=== PATIENT | female | born 1965 | race Caucasian/White ===

== ENCOUNTER → 2021-12-14 | Outpatient (CLI) | payer OTHER | END | disposition home or self-care (01) | LOC: RAD 14:44 | PROVIDERS: ATTEND Family Medicine | DX: J92.9 Pleural plaque without asbestos (principal) ==

== ENCOUNTER 2024-06-16 10:05 | Emergency (ER) | payer OTHER ==
[~2024-06-16] VITALS: Ht 170.1 cm; Wt 59.0 kg
[2024-06-16] MEDS ORDERED: IOHEXOL 300 MG/ML 100 ML VIAL IV ONE (10:25)
[2024-06-16 10:46] LABS: BASO # 0.1 10*3/uL (0.0-0.1); BASO % 0.7 % (0.0-1.0); EOS # 0.3 10*3/uL (0.0-0.4); EOS % 2.9 % (1.0-4.0); HEMATOCRIT 37.9 % (37.0-47.0); LYMPH # 1.5 10*3/uL (1.3-4.4); MEAN CELL VOLUME 87.5 fl (81.0-99.0); MEAN CORPUSCULAR HGB 29.3 pg (27.0-31.0); MEAN CORPUSCULAR HGB CONC 33.5 g/dl (33.0-37.0); MEAN PLATELET VOLUME 9.3 fl (9.6-12.3); MONO # 0.8 10*3/uL (0.1-1.0); MONO % 9.6 % (3.0-9.0); NEUT # 5.9 10*3/uL (2.3-7.9); NEUT % 69.6 % (47.0-73.0); PLATELET COUNT AUTOMATED 281 10*3/uL (130-400); RED BLOOD COUNT 4.33 10*6/uL (4.10-5.10); RED CELL DISTRI WIDTH 12.5 % (0-14.5); WHITE BLOOD COUNT 8.5 10*3/uL (4.8-10.8)
[2024-06-16 11:09] LABS: ALKALINE PHOSPHATASE 97 U/L (46-116); BUN 9 mg/dl (9-23); CHLORIDE 102 mmol/L (98-107); LIPASE 34 U/L (12-53); POTASSIUM 4.1 mmol/L (3.4-5.1); SGPT/ALT 26 U/L (5-49); TOTAL PROTEIN 7.5 gm/dL (6.0-8.0)
[2024-06-16 12:06] LABS: BILIRUBIN Negative (Negative); BLOOD Negative (Negative); CLARITY Clear (Clear); COLOR Yellow (Yellow); GLUCOSE Negative (Negative); KETONE Negative (Negative); LEUKO ESTERASE 3+ (Negative); NITRITE Negative (Negative); UROBILINOGEN 0.2 E.U./dl (0.0-1.0)
[2024-06-16 12:16] LABS: BACTERIA 1+; EPITHELIAL CELLS 16-20; WBC TNTC wbc/hpf (0-5)
[2024-06-16] MEDS ORDERED: IBUPROFEN400 MG PO (13:46)
[2024-06-16] MEDS ORDERED: MIRALAX POWDER17 G1 PO (13:46)
[2024-06-16] MEDS ORDERED: TYLENOL EXTRA500 MG PO (13:46)
[2024-06-16] MEDS ORDERED: MORPHINE SULFAT15 MG PO (13:46)
[2024-06-16] MEDS ORDERED: Ondansetron4 MG PO (13:46)
[2024-06-16] MEDS ORDERED: AMOX-CLAV 875-1 EACH PO (13:46)
== END 2024-06-16 14:12 | disposition home or self-care (01) ==
LOC: ED 10:05
PROVIDERS: Emergency Medicine
DX: K57.32 Diverticulitis of large intestine without perforation or abscess without bleeding (principal)

== ENCOUNTER 2024-07-29 13:24 | Emergency (ER) | payer OTHER ==
[~2024-07-29] VITALS: Ht 172.7 cm; Wt 59.0 kg
[~2024-07-29 13:24] MED LIST: AMOX-CLAV 875-1 EACH PO; IBUPROFEN400 MG PO; MIRALAX POWDER17 G1 PO; MORPHINE SULFAT15 MG PO; Ondansetron4 MG PO; TYLENOL EXTRA500 MG PO
[2024-07-29 13:54] VITALS: BP 124/71
[2024-07-29] MEDS ORDERED: TRAZODONE100 MG PO (13:55)
[2024-07-29] MEDS ORDERED: MONTELUKAST SOD10 MG PO (13:55)
[2024-07-29] MEDS ORDERED: ESTRADIOL10 MCG V (13:56)
[2024-07-29] MEDS ORDERED: SODIUM CHLORIDE 0.9% 1,000 ML IV ONE (14:05)
[2024-07-29 14:40] LABS: HEMATOCRIT 39.4 % (37.0-47.0); LYMPH # 0.7 10*3/uL (1.3-4.4); LYMPH % 17.9 % (27.0-41.0); MEAN CELL VOLUME 89.5 fl (81.0-99.0); MEAN CORPUSCULAR HGB 28.9 pg (27.0-31.0); MEAN CORPUSCULAR HGB CONC 32.2 g/dl (33.0-37.0); MEAN PLATELET VOLUME 9.5 fl (9.6-12.3); MONO # 0.3 10*3/uL (0.1-1.0); MONO % 6.9 % (3.0-9.0); NEUT # 3.1 10*3/uL (2.3-7.9); NEUT % 75.2 % (47.0-73.0); PLATELET COUNT AUTOMATED 274 10*3/uL (130-400); RED CELL DISTRI WIDTH 12.7 % (0-14.5); WHITE BLOOD COUNT 4.1 10*3/uL (4.8-10.8)
[2024-07-29 14:54] LABS: BUN 11 mg/dl (9-23); CHLORIDE 100 mmol/L (98-107)
== END 2024-07-29 16:00 | disposition home or self-care (01) ==
LOC: ED 13:24 → EDHOLD 15:51 → ED 15:51
PROVIDERS: Internal Medicine
DX: U07.1 COVID-19 (principal); R53.1 Weakness

== ENCOUNTER 2024-07-30 08:15 | Inpatient (IN) | payer OTHER ==
[~2024-07-30] VITALS: Ht 170.2 cm; Wt 64.9 kg
[~2024-07-30 08:15] MED LIST changes: +ESTRADIOL10 MCG V; +MONTELUKAST SOD10 MG PO; +TRAZODONE100 MG PO
[2024-07-30 08:23] VITALS: BP 139/76
[2024-07-30] MEDS ORDERED: Lactated Ringer's Solution 1,000 ML IV SCH (08:45)
[2024-07-30] MEDS ORDERED: diphenhydrAMINE hydrochloride 50 MG/ML VIAL IV ONE (08:55)
[2024-07-30] MEDS ORDERED: Metoclopramide Hydrochloride 10 MG/2 ML VIAL IV ONE (08:55)
[2024-07-30] MEDS ORDERED: Dexamethasone Sodium Phospha 10 MG/1 ML VIAL IV ONE (08:55)
[2024-07-30] MEDS ORDERED: Prochlorperazine Edisylate 10 MG/2 ML VIAL IV ONE (08:55)
[2024-07-30 09:06] LABS: BASO % 0.2 % (0.0-1.0); EOS % 0.2 % (1.0-4.0); HEMATOCRIT 36.5 % (37.0-47.0); LYMPH # 1.1 10*3/uL (1.3-4.4); LYMPH % 24.6 % (27.0-41.0); MEAN CELL VOLUME 87.5 fl (81.0-99.0); MEAN CORPUSCULAR HGB 28.5 pg (27.0-31.0); MEAN CORPUSCULAR HGB CONC 32.6 g/dl (33.0-37.0); MEAN PLATELET VOLUME 9.5 fl (9.6-12.3); MONO # 0.4 10*3/uL (0.1-1.0); MONO % 9.1 % (3.0-9.0); NEUT # 2.8 10*3/uL (2.3-7.9); NEUT % 65.7 % (47.0-73.0); PLATELET COUNT AUTOMATED 254 10*3/uL (130-400); RED BLOOD COUNT 4.17 10*6/uL (4.10-5.10); RED CELL DISTRI WIDTH 12.6 % (0-14.5); WHITE BLOOD COUNT 4.3 10*3/uL (4.8-10.8)
[2024-07-30 09:24] LABS: ALKALINE PHOSPHATASE 84 U/L (46-116); BUN 10 mg/dl (9-23); CHLORIDE 103 mmol/L (98-107); POTASSIUM 3.8 mmol/L (3.4-5.1); SGPT/ALT 24 U/L (5-49); TOTAL PROTEIN 6.9 gm/dL (6.0-8.0)
[2024-07-30] MEDS ORDERED: BISACODYL 5 MG TAB PO PRN (10:55)
[2024-07-30] MEDS ORDERED: BISACODYL 10 MG SUPP R PRN (10:55)
[2024-07-30] MEDS ORDERED: TEMAZEPAM 15 MG CAP PO PRN (10:55)
[2024-07-30] MEDS ORDERED: Acetaminophen/Hydrocodone 5 MG/325 MG TABLET PO PRN (10:55)
[2024-07-30] MEDS ORDERED: Magnesium Hydroxide 30 ML UDC PO PRN (10:55)
[2024-07-30] MEDS ORDERED: SODIUM CHLORIDE 0.9% 1,000 ML IV SCH (10:55)
[2024-07-30] MEDS ORDERED: MORPHINE Sulfate 2 MG/ML SYR IV PRN (10:55)
[2024-07-30] MEDS ORDERED: Dexamethasone Sodium Phospha 4 MG/ML VIAL IV SCH (11:00)
[2024-07-30] MEDS ORDERED: REMDESIVIR 200 MG in SODIUM CHLORIDE 0.9% 210 ML IV ONE (12:00)
[2024-07-30] MEDS ORDERED: Ondansetron Hydrochloride 4 MG/2 ML VIAL IV SCH (12:00)
[2024-07-30 12:40] VITALS: BP 124/67
[2024-07-30] MEDS ORDERED: ACETAMINOPHEN 325 MG TAB PO SCH (14:00)
[2024-07-30 15:15] VITALS: BP 114/55
[2024-07-30 20:00] VITALS: BP 128/72
[2024-07-31] VITALS: BP 128/79
[2024-07-31] MEDS ORDERED: Pantoprazole Sodium 40 MG TAB PO SCH (06:00)
[2024-07-31 06:23] LABS: BASO % 0.1 % (0.0-1.0); HEMATOCRIT 34.7 % (37.0-47.0); LYMPH % 13.3 % (27.0-41.0); MEAN CELL VOLUME 86.8 fl (81.0-99.0); MEAN CORPUSCULAR HGB CONC 33.4 g/dl (33.0-37.0); MEAN PLATELET VOLUME 9.9 fl (9.6-12.3); MONO # 0.4 10*3/uL (0.1-1.0); MONO % 4.7 % (3.0-9.0); NEUT # 6.3 10*3/uL (2.3-7.9); NEUT % 81.6 % (47.0-73.0); PLATELET COUNT AUTOMATED 263 10*3/uL (130-400); RED CELL DISTRI WIDTH 12.6 % (0-14.5); WHITE BLOOD COUNT 7.7 10*3/uL (4.8-10.8)
[2024-07-31 06:54] LABS: ALKALINE PHOSPHATASE 80 U/L (46-116); BUN 12 mg/dl (9-23); CHLORIDE 107 mmol/L (98-107); SGPT/ALT 26 U/L (5-49); TOTAL PROTEIN 6.6 gm/dL (6.0-8.0)
[2024-07-31 07:04] LABS: VITAMIN D, 25-HYDROXY 37.7 ng/mL (30-100)
[2024-07-31 08:00] VITALS: BP 121/75; BP 156/71
[2024-07-31] MEDS ORDERED: Enoxaparin Sodium 40 MG/0.4 ML SYR SC SCH (10:00)
[2024-07-31 12:00] VITALS: BP 127/62
[2024-07-31] MEDS ORDERED: REMDESIVIR 100 MG in SODIUM CHLORIDE 0.9% 230 ML IV SCH (12:00)
[2024-07-31 16:00] VITALS: BP 132/72
[2024-07-31 20:00] VITALS: BP 129/73
[2024-07-31] MEDS ORDERED: Montelukast Sodium 10 MG TAB PO SCH (22:00)
[2024-08-01 08:00] VITALS: BP 133/65
[2024-08-01 12:00] VITALS: BP 120/72
[2024-08-01] MEDS ORDERED: DEXAMETHASONE6 MG PO (12:20)
== END 2024-08-01 13:24 | disposition home or self-care (01) | DRG 179 ==
LOC: ED 08:15 → EDHOLD 10:15 → 4E 10:15 → EDHOLD 10:16 → 4E 14:35
PROVIDERS: Emergency Medicine; ADMIT Internal Medicine; ATTEND Internal Medicine
PROC: XW033E5 Introduction of Remdesivir Anti-infective into Peripheral Vein, Percutaneous Approach, New Technology Group 5 (ICD-10-PCS; principal; 2024-08-01)
DX: U07.1 COVID-19 (principal); D72.819 Decreased white blood cell count, unspecified; E86.0 Dehydration; K57.30 Diverticulosis of large intestine without perforation or abscess without bleeding; G47.00 Insomnia, unspecified; G44.89 Other headache syndrome; D64.9 Anemia, unspecified; R73.9 Hyperglycemia, unspecified; M41.9 Scoliosis, unspecified; Z79.899 Other long term (current) drug therapy; Z79.01 Long term (current) use of anticoagulants; Z79.2 Long term (current) use of antibiotics; Z87.891 Personal history of nicotine dependence; Z98.51 Tubal ligation status